=== PATIENT | female | born 1980 | race Caucasian/White ===

== ENCOUNTER 2022-08-15 18:34 | Emergency (ER) | payer MEDICAID ==
[~2022-08-15] VITALS: Ht 162.6 cm; Wt 136.4 kg
--- NOTE | 2022-08-15 19:21 | NUR ---
POISON CONTROL CALLED. . GIVEN INSTRUCTIONS TO WATCH FOR RESPIRATORY DEPRESSION, HYPOTENSION, TACHYCARDIA, SEIZURES (TREAT WITH BENZOS), QRS WIDENING (MAY GIVE SODIUM BICARB BOLUSES IF NEEDED), QTC PROLONGATION (MONITOR ELECTROLYTES AND REPLACE APPROPRIATELY). CHECK CMP, CBC, TYLENOL LEVELS, SALICYLATE LEVELS, BLOOD ETOH, TOX SCREEN, AMMONIA LEVEL TRENDING Q3-4 HRS (IF ELEVATED CALL POISON CONTROL), VALPORIC ACID TRENDS Q3-4 HRS(IF ABOVE 800 CALL POISON CONTROL FOR POSSIBLE NEED OF DIALYSIS), EKG NOW AND EVERY 4 HRS. PT NEEDS TO BE ON CARDIAC MONITORING AT LEAST 24 HRS D/T POSSIBLE EXTENDED RELEASE MEDICATION. DR SCHWARTZ AWARE.
--- NOTE | 2022-08-15 19:24 | NUR ---
Per poison control - Hold charcoal d/t drowsiness Monitor airway to ensure airway protection d/t respiratory depression. Advised to intubate if clinically necessary.
[2022-08-15 19:37] LABS: BASOPHILS # (AUTO) 0.1 X10'3 (0-0.2); BASOPHILS % (AUTO) 1.2 % (0-1); EOSINOPHILS # (AUTO) 0.2 X10'3 (0-0.9); EOSINOPHILS % (AUTO) 2.7 % (0-6); HEMATOCRIT 34.7 % (35.0-45.0); HEMOGLOBIN 11.2 g/dl (12.0-16.0); LYMPHOCYTES # (AUTO) 1.6 X10'3 (1.1-4.8); LYMPHOCYTES % (AUTO) 24.4 % (21-51); MEAN CORPUSCULAR HEMOGLOBIN 25.2 PG (27.0-31.0); MEAN CORPUSCULAR HGB CONC 32.3 g/dL (33.0-36.5); MEAN CORPUSCULAR VOLUME 78.1 FL (78-98); MEAN PLATELET VOLUME 7.9 FL (7.4-10.4); MONOCYTES # (AUTO) 0.5 X10'3 (0-0.9); MONOCYTES % (AUTO) 7.6 % (2-12); NEUTROPHILS # (AUTO) 4.2 X10'3 (1.8-7.7); NEUTROPHILS % (AUTO) 64.1 % (42-75); PLATELET COUNT 363 X10'3 (140-440); RED BLOOD COUNT 4.44 X10'6 (4.20-5.60); RED CELL DISTRIBUTION WIDTH 18.9 % (11.5-14.5); WHITE BLOOD COUNT 6.6 X10'3 (4.5-11.0)
[2022-08-15 20:05] LABS: ALANINE AMINOTRANSFERASE 27 U/L (12-78); ALBUMIN 3.3 G/DL (3.4-5.0); ALBUMIN/GLOBULIN RATIO 0.8 (1.1-1.5); ALKALINE PHOSPHATASE 81 IU/L (46-116); ANION GAP 9 (8-16); ASPARTATE AMINO TRANSFERASE 16 U/L (10-37); BILIRUBIN,TOTAL 0.1 MG/DL (0.1-1.0); BLOOD UREA NITROGEN 7 MG/DL (7-18); BUN/CREATININE RATIO 11.5 (6.6-38.0); CALCIUM 8.9 MG/DL (8.5-10.1); CHLORIDE 104 MMOL/L (99-107); CREATININE 0.61 MG/DL (0.40-0.90); ETHANOL < 0.010 GM/DL (0.0-0.010); GLUCOSE 108 MG/DL (70-104); SODIUM 140 MMOL/L (135-145); TOTAL CARBON DIOXIDE 27.2 MMOL/L (24-32); TOTAL PROTEIN 7.4 G/DL (6.4-8.2); eGFR > 90 ML/MIN
[2022-08-15 20:06] LABS: VALPROATE < 3.0 UG/ML (50-100)
[2022-08-15 20:08] LABS: ACETAMINOPHEN < 2.0 UG/ML (10-30)
[2022-08-15 20:10] LABS: URINE HCG NEGATIVE (NEG)
[2022-08-15 20:23] LABS: URINE AMPHETAMINE SCREEN NEGATIVE (Neg); URINE BARBITUATE SCREEN NEGATIVE (Neg); URINE BENZODIAZEPINES SCREEN NEGATIVE (Neg); URINE CANNABINOID SCREEN POSITIVE (Neg); URINE COCAINE SCREEN NEGATIVE (Neg); URINE METHADONE SCREEN NEGATIVE (Neg); URINE OPIATE SCREEN NEGATIVE (Neg); URINE PHENCYCLIDINE SCREEN NEGATIVE (Neg)
[2022-08-15 20:43] LABS: PLATELET ESTIMATE NORMAL
[2022-08-15 20:45] LABS: ANISOCYTOSIS 2+; MICROCYTOSIS 1+
[2022-08-15 20:47] LABS: LARGE PLATELETS FEW
--- NOTE | 2022-08-16 01:28 | NUR ---
PER POSION CONTROL IF VALPORIC ACID AND ACETAMINOPHEN CONTINUE TO BE NEGATIVE NO MORE LAB DRAWS NEEDED. 24 HOUR CARDIAC MONITORING RECOMMENDED R/T POSSSIBLE ER [facility]
--- NOTE | 2022-08-16 06:51 | NUR ---
Patient sleeping supine with snoring respirations. No distress observed. Continue to monitor.
[2022-08-16 07:56] LABS: VALPROATE < 3.0 UG/ML (50-100)
--- NOTE | 2022-08-16 08:10 | NUR ---
Patient eating breakfast. No distress observed. Continue to monitor.
[2022-08-16 09:15] LABS: CLARITY,URINE CLOUDY (Clear); COLOR,URINE RED (Yellow); GLUCOSE, URINE NEGATIVE (Neg); KETONES,URINE NEGATIVE (Neg); LEUKOCYTE ESTERASE ,URINE TRACE (Neg); NITRITES, URINE NEGATIVE (Neg); OCCULT BLOOD,URINE LARGE (Neg); PROTEIN,URINE 30 mg/dl (Neg); UROBILINOGEN,URINE 0.2 E.U/dL (0.2-1.0)
[2022-08-16 09:28] LABS: UA COLLECTION TYPE CLN CATCH MIDSTREAM
[2022-08-16 09:29] LABS: BACTERIA,URINE FEW /HPF (Neg); RBC,URINE TNTC /HPF (0-2); SQUAMOUS EPITHELIAL CELL,UR MODERATE /LPF (FEW)
[2022-08-16 09:30] LABS: WBC,URINE 0-4 /HPF (0-4)
--- NOTE | 2022-08-16 10:09 | NUR ---
Patient sleeping supine. No distress observed. Continue to monitor.
--- NOTE | 2022-08-16 10:40 | NUR ---
Julius [facility], evaluating patient. No distress observed. Continue to monitor.
--- NOTE | 2022-08-16 11:16 | NUR ---
Patient moved to ED OF bed 26. No distress observed. Continue to monitor.
--- NOTE | 2022-08-16 12:13 | NUR ---
Patient eating lunch. No distress observed. Continue to monitor.
[2022-08-16 13:08] VITALS: BP 132/81
--- NOTE | 2022-08-16 14:05 | NUR ---
Patient sleeping supine. No distress observed. Continue to monitor.
--- NOTE | 2022-08-16 16:40 | NUR ---
Patient getting dressed to go to [facility]. No distress observed. Continue to monitor.
== END 2022-08-16 17:52 ==
LOC: ER 18:38
DX: R45.851 Suicidal ideations (principal); Z20.822 Contact with and (suspected) exposure to COVID-19; T43.292A Poisoning by other antidepressants, intentional self-harm, initial encounter; G89.29 Other chronic pain; M54.50 Low back pain, unspecified; F31.9 Bipolar disorder, unspecified; Y92.89 Other specified places as the place of occurrence of the external cause
CPT/HCPCS: 36415; 71045; 80053; 80164; 80305; 80320; 80329; 81001; 81025; 82140; 84443; 85008; 85025; 87077; 87088; 87186; 87811; 93005; 99285